=== PATIENT | female | born 1945 | race Caucasian/White ===

== ENCOUNTER 2016-02-23 09:08 | Outpatient (CLI) | payer OTHER ==
[~2016-02-23 09:08] MED LIST: CELEBREX100 MG PO; MULTIVITAMIN1 TAB PO; OMEPRAZOLE20 M1 PO; VITAMIN D-31000 UNIT PO
--- NOTE | 2016-02-23 11:27 | DIAGNOSTIC IMAGING REPORT ---
PROCEDURE: US ABDOMEN ULTRASOUND-COMPLETE INDICATION: ABD PAIN,RUQ TECHNIQUE: Arshad scale and color Doppler sonographic images of the abdomen were obtained without comparison. COMPARISON: Abdominal ultrasound 08/04/2009 FINDINGS: The liver is normal in size, contour, and echotexture. No mass or intrahepatic biliary dilatation. The gallbladder contains a large mobile stone that measures 2.2 cm The wall is normal thickness measuring 2.7 mm No pericholecystic fluid or Romero sign. The extrahepatic common duct is normal measuring 5.1 mm The visualized pancreas is normal without ductal dilatation or peripancreatic fluid collection. The abdominal aorta is normal in its course and caliber. The retrohepatic inferior vena cava is patent. There is appropriate hepatopetal flow in the portal vein. The right kidney measures 10.8 x 4.2 x 4.7 cm in length. The left kidney measures 10.4 x 5.2 x 5.0 cm in length. Both kidneys demonstrate normal morphology and cortical thickness without hydronephrosis, cyst, solid mass, or shadowing calculus. There is a 16 mm area in the superior pole right kidney which could represent scarring or possibly an angiomyolipoma. This was present on the previous ultrasound in 2009 minutes unchanged. Color Doppler imaging demonstrates normal blood flow in each kidney. The spleen is normal in size measuring 9.5 cm in length. There is no perihepatic or perisplenic ascites. IMPRESSION: 1. Cholelithiasis
[2016-03-24] MEDS ORDERED: HYDROCHLOROTH12.5 M1 PO (12:51)
[2016-03-24] MEDS ORDERED: ST JOHNS WORT PO ×2 (12:54→14:13)
[2016-03-24] MEDS ORDERED: GNP CHILDR (12:58)
[2016-03-24] MEDS ORDERED: GARLIC400 M1 PO (14:15)
[2016-03-24] MEDS ORDERED: OMEGA 31000 MG PO (14:15)
[2016-03-24] MEDS ORDERED: CALCIUM 600 PO (14:17)
[2016-03-24] MEDS ORDERED: VITAMIN D-31000 UNIT PO (14:17)
[2016-03-24] MEDS ORDERED: SELENIUM100 MCG PO (14:18)
[2016-03-24] MEDS ORDERED: [UNRECOGNIZED DRUG - OTHER] (14:20)
== END 2016-02-23 23:00 ==
LOC: US SRH 09:08
DX: R10.11 Right upper quadrant pain (principal); K80.20 Calculus of gallbladder without cholecystitis without obstruction

== ENCOUNTER 2016-03-28 06:03 | Day surgery (SDC) | payer OTHER ==
[~2016-03-28] VITALS: Ht 176.5 cm; Wt 82.0 kg
[~2016-03-28 06:03] MED LIST changes: +CALCIUM 600 PO; +GARLIC400 M1 PO; +GNP CHILDR; +HYDROCHLOROTH12.5 M1 PO; +OMEGA 31000 MG PO; +SELENIUM100 MCG PO; +ST JOHNS WORT PO; +[UNRECOGNIZED DRUG - OTHER]
--- NOTE | 2016-03-28 06:44 | NUR ---
PRE OP TEACHING DONE AND UNDERSTOOD
--- NOTE | 2016-03-28 07:16 | NUR ---
CALL TO ANESTHESIA RE ORDERS. EKG ORDERED; PT AND RESTING QUIETLY. PRE OP TEACHING DONE AND UNDERSTOOD BY PT AND
[2016-03-28] MEDS ORDERED: NORCO1 TA1 PO (08:51)
--- NOTE | 2016-03-28 08:52 | Provider's Discharge Care Plan ---
Problem, Goal, Plan Problem List 1. Cholelithiasis with chronic cholangitis
--- NOTE | 2016-03-28 08:52 | Provider's Discharge Care Plan ---
Problem, Goal, Plan Problem List 1. Cholelithiasis with chronic cholangitis
--- NOTE | 2016-03-28 09:25 | OPERATIVE REPORT ---
DATE OF SURGERY: 03/28/2016 SURGEON: Robert Pfeiffer MD [employer] HELPER: Mel Lockwood III, MD PREOPERATIVE DIAGNOSIS: 1. Cholelithiasis with chronic cholecystitis POSTOPERATIVE DIAGNOSIS: 1. Cholelithiasis with chronic cholecystitis PROCEDURE PERFORMED: 1. Laparoscopic cholecystectomy with cholangiography ANESTHESIA: General. INDICATIONS: The patient is a 70-year-old woman with a 5-year history of intermittent right upper quadrant abdominal pain associated with fatty foods. She has a 2.2 cm gallstone on ultrasound. SURGICAL TECHNIQUE: The patient was taken to the operating room, where a general anesthetic was administered and the patient prepped and draped in the usual sterile fashion. A local anesthetic of 0.5% Marcaine with epinephrine was used at each incision site. The patient received IV antibiotics and sequential compression devices. An infraumbilical incision was made and a Veress needle used to insufflate the abdominal cavity. A 10 mm cannula was passed and visualization was obtained. The 3 additional trocars were placed in the usual location. There were some adhesions from the right colon to the old appendectomy site, but the operative field was completely free of adhesions, except for omental adhesions to the anterior wall of the gallbladder. The gallbladder was elevated and adhesions taken down, freeing up the entire gallbladder using electrocautery and blunt dissection. The cystic duct was isolated at the neck of the gallbladder. The cystic duct was clipped at the neck of the gallbladder. A fluoroscopic cholangiogram was carried out which revealed free flow into the duodenum and no filling defects. The cystic duct was doubly clipped, cystic artery was doubly clipped and divided and the gallbladder stripped from the gallbladder fossa using electrocautery. The intact gallbladder was pulled to the upper midline trocar site where it was emptied of bile with the suction cannula. The stone was crushed and removed with [place] forceps and the empty gallbladder extracted. Local anesthetic of 0.5% Marcaine with epinephrine was instilled, gas was evacuated, and the midline trocar sites closed with interrupted subcuticular 4-0 Vicryl suture. Steri-Strips and dressings were applied and the patient left in good condition.
--- NOTE | 2016-03-28 09:42 | NUR ---
PT IS AWAKE AND ALERT PRIOR D/C FROM PACU. PT DENIES NAUSEA. PT STATES MILD ABDOMINAL PAIN. ABDOMEN IS SOFT, DRESSING IS CLEAN AND DRY. VSS. TALKED TO PT IN PACU. REPORT GIVEN TO RN.
[2016-03-28 10:18] VITALS: BP 121/56
--- NOTE | 2016-03-28 10:26 | NUR ---
0925 REC'D FROM OR; AWAKE AND ALERT. TOLERATES ICE CHIPS. PRESENT.
--- NOTE | 2016-03-28 10:30 | NUR ---
UP TO CHAIR. EATING AND DRINKING
--- NOTE | 2016-03-28 10:35 | DIAGNOSTIC IMAGING REPORT ---
PROCEDURE: XR INTRAOPERATIVE LAP CHIQUI INDICATION: GALLSTONES TECHNIQUE: Intraoperative fluoroscopy provided for Dr. Saavedra performing an intraoperative cholangiogram following cholecystectomy. Total fluoroscopy time 0.10 minute Cumulative dose 2.9 mGy. COMPARISON: None. FINDINGS: Two intraoperative fluoroscopic spot images of the right upper quadrant of the abdomen demonstrate cannulation of the cystic duct stump and opacification of the intrahepatic and extrahepatic biliary tree. There are no filling defects. There is normal passage of contrast into the duodenum. IMPRESSION: 1. Negative intraoperative cholangiogram.
--- NOTE | 2016-03-28 11:25 | NUR ---
up walking in halls with ; steady on feet. Eating and drinking well. dc info reviewed with pt and family; questions answered.
--- NOTE | 2016-03-28 11:50 | NUR ---
COMFOR TABLE. DC INFO REVIEWED; ANALGESIC GIVEN FOR 4/10 OP SITE DISCOMFORT.
== END 2016-03-28 11:55 | disposition home or self-care (01) ==
LOC: OR SRH 06:03 → SCU SRH 06:23 → OR SRH 07:30
DX: K80.10 Calculus of gallbladder with chronic cholecystitis without obstruction (principal); I10 Essential (primary) hypertension
CPT/HCPCS: 29240; 50002; 60001; 70002; 80102; 80212; 80248; 82794; 82807; 83339; 83348; 83432; 83587; 83920; 83937; 83982; 84038